=== PATIENT | female | born 1965 | race Caucasian/White ===

== ENCOUNTER 2017-04-07 12:49 | Emergency (ER) | payer OTHER ==
[~2017-04-07] VITALS: Ht 172.7 cm; Wt 85.6 kg
[~2017-04-07 12:49] MED LIST: ADULT LOW DOSE81 M1 PO; AUGMENTIN875 MG PO; BENTYL20 MG PO; BUNAVAIL 4.2-01 EACH BC; CARVEDILOL12.5 MG PO; CENTRUM COMPLE1 EACH PO; CITALOPRAM HBR10 MG PO; CLEOCIN300 MG PO; COLACE100 MG PO; CREON 10 EC CA249 MG PO; CREON DR 12,001 EAC1 PO; CREON DR 3,0001 EACH PO; Colace PO; DICLOFENAC SODI75 MG; DICLOFENAC SODI75 MG PO; ENDOCET 5-3251 EACH PO; ESKALITH300 M1 PO; HYDROCODON-ACE1 EAC7 PO; HYDROXYZINE PAM50 MG PO; Habitrol,Nicoderm CQ TD; INDERAL; INDERAL20 M1 PO; LEVAQUIN500 MG PO; LIDODERM 5% P1 PATCH TD; LISINOPRIL2.5 MG PO; LITHIUM; LORTAB 5-500 T1 EAC1 PO; LORTAB 5-500 T1 EACH PO; LaMICtal PO; Levaquin PO; MINIPRESS1 MG PO; NAPROSYN375 MG PO; NAPROSYN500 MG PO; NEURONTIN100 MG PO; NO HOME MEDS; NOHOMEMEDS; PANTOPRAZOLE SO40 MG PO; PERCOCET 10/1 TABLET PO; PERCOCET 5/31 TABLET PO; PRAVACHOL40 MG PO; PRAVASTATIN SOD40 MG PO; PRILOSEC40 MG PO; PRISTIQ100 MG PO; PRISTIQ50 MG PO; PROMETHAZINE HC25 M1 PO; PROTONIX40 MG PO; REMERON45 MG PO; REQUIP2 MG PO; SEROQUEL; SEROQUEL XR300 MG PO; SEROQUEL200 MG PO; SEROQUEL300 MG PO; SEROQUEL50 MG PO; SUBOXONE 8 M1 TABLET SL; SUBOXONE 8 MG-1 EAC2 SL; THORAZINE200 MG PO; TIZANIDINE HCL2 MG PO; TOFRANIL50 MG PO; TRAMADOL HCL50 MG PO; VIIBRYD1 EACH PO; XANAX0.25 MG PO; XANAX0.5 MG PO; XANAX1 MG PO; Xanax PO; ZANTAC150 MG PO; ZOFRAN ODT4 MG PO; ZOFRAN4 MG PO; [UNRECOGNIZED DRUG - CODE]
[2017-04-07 13:52] LABS: ADD MIUA? YES; BILIRUBIN NEGATIVE; BLOOD MODERATE; COLOR YELLOW ((YELLOW)); GLUCOSE (STRIP) NEGATIVE; KETONES NEGATIVE; LEUKOCYTES NEGATIVE; NITRITE NEGATIVE; PROTEIN (STRIP) NEGATIVE; SPECIFIC GRAVITY 1.014 (1.000-1.030); UROBILINOGEN 0.2 MG/DL (0.2-1.0)
[2017-04-07 13:55] LABS: MCHC 33.3 G/DL (30.0-36.0); MEAN PLAT.VOLUME 9.7 uM^3 (9.5-12.4); PLATELET COUNT 304 K/uL (156-360); RBC DIS.WIDTH-CV 13.6 % (11.8-14.6); RBC DIS.WIDTH-SD 46.5 % (39-53); RED BLOOD COUNT 4.84 M/uL (3.80-5.20); WHITE BLOOD COUNT 10.3 K/uL (4.1-10.2)
[2017-04-07 14:05] LABS: BACTERIA NONE SEEN /HPF; EPITHELIAL CELLS 1+ /HPF; MUCUS NONE SEEN /LPF; UCUL ADDED? NO; WHITE BLOOD CELLS 0-5 /HPF (0-5)
[2017-04-07 14:10] LABS: CHLORIDE 105 mEq/L (99-109); POTASSIUM 4.2 mEq/L (3.7-5.4); SODIUM 139 mEq/L (136-147)
[2017-04-07 14:12] LABS: GLUCOSE 121 mg/dL (70-99)
[2017-04-07 14:13] LABS: ANION GAP 13 MEQ/L (2-14)
[2017-04-07 14:14] LABS: TOTAL BILIRUBIN 0.4 mg/dL (0.0-1.0)
[2017-04-07 14:15] LABS: ALKALINE PHOSPHATASE 108 IU/L (3-129)
[2017-04-07 14:16] LABS: GFR ESTIMATE (CALCULATED) > 59 mL/min/
[2017-04-07 14:17] LABS: UREA NITROGEN (BUN) 12 mg/dL (9-23)
[2017-04-07 15:49] LABS: LIPASE < 1 U/L (1.0-51.0)
[2017-04-07 16:53] VITALS: BP 116/86
== END 2017-04-07 16:55 | disposition home or self-care (01) ==
LOC: EME 12:49
DX: R10.32 Left lower quadrant pain (principal); K43.9 Ventral hernia without obstruction or gangrene; R50.9 Fever, unspecified; R19.7 Diarrhea, unspecified; R11.0 Nausea; Z90.710 Acquired absence of both cervix and uterus; F17.200 Nicotine dependence, unspecified, uncomplicated
CPT/HCPCS: 74176; 80053; 81003; 83690; 84702; 85027; 99281; 99284

== ENCOUNTER → 2017-08-31 | Outpatient (CLI) | payer OTHER | END | disposition home or self-care (01) | LOC: EKG 13:30 | DX: Z01.810 Encounter for preprocedural cardiovascular examination (principal); K43.9 Ventral hernia without obstruction or gangrene | CPT/HCPCS: 93005 ==

== ENCOUNTER 2017-09-22 08:53 | Day surgery (SDC) | payer OTHER ==
[~2017-09-22] VITALS: Ht 172.7 cm; Wt 85.2 kg
[~2017-09-22 08:53] MED LIST changes: +BUNAVAIL BC; +MULTIVITAMIN1 EAC2 PO; +NAPROXEN SODIU220 M1 PO; -NEURONTIN100 MG PO; +NEURONTIN300 MG PO; +SEROQUEL400 MG PO
[2017-09-22 09:36] VITALS: BP 112/75
[2017-09-22] MEDS ORDERED: NORCO 5/3251 TABLET PO (12:16)
[2017-09-22] MEDS ORDERED: MOTRIN600 MG PO (12:16)
[2017-09-22 14:05] VITALS: BP 128/80
[2017-09-22 15:05] VITALS: BP 116/74
== END 2017-09-22 15:25 | disposition home or self-care (01) ==
LOC: SDC 08:53
PROC: 0WUF0JZ Supplement Abdominal Wall with Synthetic Substitute, Open Approach (ICD-10-PCS; principal; 2017-09-22)
DX: K43.0 Incisional hernia with obstruction, without gangrene (principal); J45.909 Unspecified asthma, uncomplicated; B18.2 Chronic viral hepatitis C; I25.10 Atherosclerotic heart disease of native coronary artery without angina pectoris; I25.2 Old myocardial infarction; K76.0 Fatty (change of) liver, not elsewhere classified; F31.9 Bipolar disorder, unspecified; F17.210 Nicotine dependence, cigarettes, uncomplicated
CPT/HCPCS: C1781; J0690; J1100; J1170; J1885; J2250; J2405; J2710; J3010; S0020